=== PATIENT | female | born 1995 | race Caucasian/White ===

== ENCOUNTER → 2025-04-05 09:55 | Outpatient (REF) | payer BC, SELFPAY | LOC: RAD 09:55 | PROVIDERS: ATTENDING PHYSICIAN Nurse Practitioner Family | DX: M25.551 Pain in right hip (principal) | CPT/HCPCS: 73502 ==

== ENCOUNTER → 2025-06-10 07:02 | Outpatient (REF) | payer BC, SELFPAY | LOC: PAVMRI 07:02 | PROVIDERS: ATTENDING PHYSICIAN Nurse Practitioner Family | DX: M25.551 Pain in right hip (principal) | CPT/HCPCS: 73721 ==